=== PATIENT | female | born 1980 | race Caucasian/White ===

== ENCOUNTER 2017-06-02 14:10 | Emergency (ER) | payer SELFPAY ==
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
[2017-06-02] MEDS ORDERED: KETOROLAC 30 MG/ML VIAL IM ONE (15:32)
[2017-06-02] MEDS ORDERED: ONDANSETRON 4 MG ODT TABLET SL ONE (15:32)
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
== END 2017-06-02 16:13 | disposition home or self-care (01) ==
LOC: ER 14:10
DX: S09.90XA Unspecified injury of head, initial encounter (principal); R42 Dizziness and giddiness; R51 Headache; R11.0 Nausea; H53.2 Diplopia; W17.89XA Other fall from one level to another, initial encounter
CPT/HCPCS: 99283 ×2; 96372; 70450; J1885